=== PATIENT | female | born 1980 | race Caucasian/White ===

== ENCOUNTER 2018-04-02 23:47 | Emergency (ER) | payer BC ==
[2018-04-03 00:07] VITALS: RESP 16
[2018-04-03] MEDS ORDERED: PROPARACAINE 0.5% OPHTH DROPS 15 ML BTL BOTH EYES STA (01:53)
[2018-04-03] MEDS ORDERED: LEVOFLOXACIN 0.5% OPHTH DROPS 5 ML BTL RIGHT EYE STA (02:29)
[2018-04-03] MEDS ORDERED: DIPH,PERTUS(ACELL)TETVAC-LF 0.5 ML VIAL IM ONE (02:29)
--- NOTE | 2018-04-03 03:20 | ED ---
General Adult HPI - General Chief complaint: ENT Stated complaint: Eye swelling, headache Time Seen by Provider: 04/03/18 01:49 Source: patient, RN notes reviewed Mode of arrival: ambulatory Limitations: no limitations - History of Present Illness Initial comments: 38-year-old female presents to the emergency department for a chief complaint of right eye pain 12 hours. Patient states this pain started this morning. 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 Patient states when she woke up this morning she noticed the pain. Patient states it is irritated and feels like something is in her eye. She denies visual changes. Patient also states that the pain in the eyes causing her to have a migraine which she frequently gets. She states her left arm felt somewhat weak on the way to the emergency department which is a common symptom for her. Patient states that her headache and left arm weakness have completely resolved.Patient has no other complaints at this time including fevers or chills, shortness of breath, chest pain, abdominal pain, nausea or vomiting, or visual changes. - Related Data Home Medications Medication Instructions Recorded Confirmed buPROPion XL [Wellbutrin Xl] 150 mg PO AC-SUPPER 05/10/14 01/28/16 metFORMIN HCL [Glucophage] 500 mg PO DAILY 04/24/15 01/28/16 Acetaminophen [Tylenol] 500 - 1,000 mg PO Q4-6H PRN 01/26/16 01/28/16 Aspirin/Acetaminophen/Caffeine 1 tab PO DAILY 01/26/16 01/28/16 [Excedrin Migraine Caplet] Eletriptan [Relpax] 40 mg PO DAILY PRN 01/26/16 01/28/16 Topiramate [Topamax] 50 mg PO QAM 01/26/16 01/28/16 Topiramate [Topamax] 100 mg PO HS 01/26/16 01/28/16 Previous Rx's Medication Instructions Recorded Hydrocodone/Acetaminophen [[place] 1 - 2 tab PO Q6HR PRN #20 tab 01/28/16 5-325] Levofloxacin 0.5% Ophth Soln 2 drop BOTH EYES DIRECTED 7 04/03/18 [Quixin Ophth Soln] Days ml Allergies Allergy/AdvReac Type Severity Reaction Status Date / Time codeine AdvReac Severe Nausea & Verified 01/27/16 12:20 Vomiting Review of Systems ROS Statement: Those systems with pertinent positive or pertinent negative responses have been documented in the HPI. ROS Other: All systems not noted in ROS Statement are negative. Past Medical History Past Medical History: GERD/Reflux, Skin Disorder Additional Past Medical History / Comment(s): heavy and irregular pain periods with bloating,migraine,bump on skin around lt eye,Chiari Malformation,hx hemorrhoid, c section scar gets irritated at times History of Any Multi-Drug Resistant Organisms: None Reported Past Surgical History: Section, Hysterectomy, Orthopedic Surgery Additional Past Surgical History / Comment(s): abd. lap x7, carpal release, rt ovarian and f. tube removal. 01/27/2016 robotic hysterectomy Past Anesthesia/Blood Transfusion Reactions: No Reported Reaction Past Psychological History: Depression Smoking Status: Never smoker Past Alcohol Use History: None Reported Past Drug Use History: None Reported - Past Family History Mother Additional Family Medical History / Comment(s): hysterectomy, bladder susp x3 and prolapse rectum Father Family Medical History: Cancer Additional Family Medical History / Comment(s): prostate,skin General Exam Limitations: no limitations General appearance: alert, in no apparent distress Head exam: Present: atraumatic, normocephalic, normal inspection Eye exam: Present: normal appearance, PERRL, EOMI, conjunctival injection (Mild erythema noted of the right eye). Absent: scleral icterus, periorbital swelling , periorbital tenderness, other (No evidence of foreign body in the right eye. There is a small submillimeter circular abrasion noted at 6:00 in the right cornea. Negative Doris sign.) Expanded Eyelids: Normal Inspection: Bilateral Pupils: Regular, Round: Bilateral Sclera/Conjunctival: Injection: Right IOP (R) in mmH IOP (L) in mmH IOP measured with: Tonopen ENT exam: Present: normal exam, mucous membranes moist Neck exam: Present: normal inspection, full ROM. Absent: tenderness, meningismus, lymphadenopathy Respiratory exam: Present: normal lung sounds bilaterally. Absent: respiratory distress, wheezes, rales, rhonchi, stridor Cardiovascular Exam: Present: regular rate, normal rhythm, normal heart sounds. Absent: systolic murmur, diastolic murmur, rubs, gallop, clicks Neurological exam: Present: alert, oriented X3, CN II-XII intact Psychiatric exam: Present: normal affect, normal mood Course Vital Signs 04/03/18 00:02 Temperature 98.5 F Pulse Rate 68 Respiratory 16 Rate Blood Pressure 121/87 O2 Sat by Pulse 99 Oximetry Medical Decision Making - Medical Decision Making 38-year-old female presents to the emergency department for a chief lien of right eye pain 12 hours. Patient woke up with this pain. On exam with fluorescein stain patient does have a small submillimeter abrasion noted to the right cornea. Negative Doris sign. IOP 7 in the right eye. Patient denies visual changes. Patient symptoms resolved with proparacaine drops. Patient's pain is likely due to corneal abrasion. Patient will be treated with Levaquin flexes and drops as she does wear contacts. She was educated not to wear contacts until she sees ophthalmology. Patient will follow up with ophthalmology and return here if she has any worsening symptoms. Disposition Clinical Impression: Corneal abrasion Disposition: HOME SELF-CARE Condition: Good Instructions: Corneal Abrasion (ED) Additional Instructions: Please use eyedrops as directed. Do not wear contacts. Please follow-up with iron setter in one to 2 days. Return to the emergency department if you have any worsening symptoms. Prescriptions: Levofloxacin 0.5% Ophth Soln [Quixin Ophth Soln] 2 drop BOTH EYES DIRECTED 7 Days ml Is patient prescribed a controlled substance at d/c from ED?: No Referrals: Candy Estrada DO [Primary Care Provider] - 1-2 days Babak Clifton MD [STAFF PHYSICIAN] - 1-2 days Time of Disposition: 03:17
[2018-04-03 03:25] VITALS: BP 115/77; PULSE 77; TEMP 98.6
== END 2018-04-03 03:24 | disposition home or self-care (01) ==
LOC: EC 23:47
DX: S05.01XA Injury of conjunctiva and corneal abrasion without foreign body, right eye, initial encounter (principal); R51 Headache; F32.9 Major depressive disorder, single episode, unspecified; Z86.69 Personal history of other diseases of the nervous system and sense organs; Q07.00 Arnold-Chiari syndrome without spina bifida or hydrocephalus; Z23 Encounter for immunization; Z90.710 Acquired absence of both cervix and uterus; Z98.890 Other specified postprocedural states; Z79.82 Long term (current) use of aspirin; Z79.84 Long term (current) use of oral hypoglycemic drugs; Z79.899 Other long term (current) drug therapy; Z88.5 Allergy status to narcotic agent; X58.XXXA Exposure to other specified factors, initial encounter
CPT/HCPCS: 90471; 90715; 99283

== ENCOUNTER 2019-05-25 16:13 | Emergency (ER) | payer BC ==
[2019-05-25 16:28] VITALS: RESP 18; TEMP 98.3
[2019-05-25] MEDS ORDERED: SODIUM CHLORIDE 0.9% 1,000 ML IV STA (16:55)
[2019-05-25] MEDS ORDERED: diphenhydrAMINE 50 MG/ML 1 ML VIAL IVP STA (16:56)
[2019-05-25] MEDS ORDERED: METOCLOPRAMIDE 5 MG/ML 2 ML VIAL IVP STA (16:56)
[2019-05-25] MEDS ORDERED: ACETAMINOPHEN TAB 500 MG TAB PO STA (16:56)
[2019-05-25 17:48] VITALS: PULSE 74
[2019-05-25 18:01] LABS: Appearance,Urine Clear (Clear); Bilirubin,Urine Negative (Negative); Blood,Urine Negative (Negative); Color,Urine Light Yellow; Glucose,Urine (UA) Negative (Negative); Ketones,Urine Negative (Negative); Leukocyte Esterase,Urine Negative (Negative); Nitrite,Urine Negative (Negative); PH, Urine 7.5 (5.0-8.0); Protein,Urine Negative (Negative); Specific Gravity,Urine 1.016 (1.001-1.035); Urobilinogen,Urine <2.0 mg/dL (<2.0)
[2019-05-25 18:02] LABS: Basophils % (A) 0 %; Eosinophils # (A) 0.3 k/uL (0-0.7); Eosinophils % (A) 3 %; HCT 39.5 % (34.0-46.0); HGB 12.6 gm/dL (11.4-16.0); Lymphocytes # (A) 2.2 k/uL (1.0-4.8); Lymphocytes % (A) 25 %; MCH 27.5 pg (25.0-35.0); MCV 85.7 fL (80.0-100.0); Monocytes # (A) 0.4 k/uL (0-1.0); Monocytes % (A) 5 %; Neutrophils # (A) 5.5 k/uL (1.3-7.7); Neutrophils % (A) 65 %; Platelet Count 289 k/uL (150-450); RDW 13.1 % (11.5-15.5); WBC 8.5 k/uL (3.8-10.6)
[2019-05-25 18:15] LABS: ALT 11 U/L (4-34); AST 22 U/L (14-36); African American GFR (CKD) >90 (>60 ml/min/1.73 sqM); Albumin 3.7 g/dL (3.5-5.0); Alkaline Phosphatase 59 U/L (38-126); Anion Gap 6 mmol/L; Blood Urea Nitrogen 11 mg/dL (7-17); Calcium 8.4 mg/dL (8.4-10.2); Carbon Dioxide 25 mmol/L (22-30); Chloride 106 mmol/L (98-107); Glucose 81 mg/dL (74-99); Magnesium 1.9 mg/dL (1.6-2.3); Non-African American GFR(CKD) >90 (>60 ml/min/1.73 sqM); Potassium 4.2 mmol/L (3.5-5.1); Sodium 137 mmol/L (137-145); Total Bilirubin 0.2 mg/dL (0.2-1.3); Total Protein 6.6 g/dL (6.3-8.2)
[2019-05-25 18:17] LABS: D-Dimer 0.24 mg/L FEU (<0.60); INR 0.9 (<1.2); Prothrombin Time 9.6 sec (9.0-12.0)
--- NOTE | 2019-05-25 18:17 | ED ---
General Adult HPI - General Chief complaint: Headache Stated complaint: chest pain/migraine/left side numbness Time Seen by Provider: 05/25/19 16:44 Source: patient, RN notes reviewed, old records reviewed Mode of arrival: ambulatory Limitations: no limitations - History of Present Illness Initial comments: 39-year-old female presented for evaluation of headache. Left-sided headache. Patient has history of migraines, follows with neurology. She states this is her typical migraine. Associated with some nausea and photophobia. Left-sided frontal and parietal. She took her usual medication at home without significant relief. She also began to develop some palpitations and a vague chest discomfort approximately one hour after the gradual onset of her headache. No significant chest pain. No dyspnea. No fever. No abdominal pain. No focal numbness or weakness. - Related Data Home Medications Medication Instructions Recorded Confirmed buPROPion XL [Wellbutrin Xl] 150 mg PO AC-SUPPER 05/10/14 01/28/16 metFORMIN HCL [Glucophage] 500 mg PO DAILY 04/24/15 01/28/16 Acetaminophen [Tylenol] 500 - 1,000 mg PO Q4-6H PRN 01/26/16 01/28/16 Aspirin/Acetaminophen/Caffeine 1 tab PO DAILY 01/26/16 01/28/16 [Excedrin Migraine Caplet] Eletriptan [Relpax] 40 mg PO DAILY PRN 01/26/16 01/28/16 Topiramate [Topamax] 50 mg PO QAM 01/26/16 01/28/16 Topiramate [Topamax] 100 mg PO HS 01/26/16 01/28/16 Previous Rx's Medication Instructions Recorded Hydrocodone/Acetaminophen [[place] 1 - 2 tab PO Q6HR PRN #20 tab 01/28/16 5-325] Levofloxacin 0.5% Ophth Soln 2 drop BOTH EYES DIRECTED 7 04/03/18 [Quixin Ophth Soln] Days ml Allergies Allergy/AdvReac Type Severity Reaction Status Date / Time codeine AdvReac Severe Nausea & Verified 05/25/19 16:29 Vomiting Review of Systems ROS Statement: Those systems with pertinent positive or pertinent negative responses have been documented in the HPI. ROS Other: All systems not noted in ROS Statement are negative. Past Medical History Past Medical History: GERD/Reflux, Skin Disorder Additional Past Medical History / Comment(s): heavy and irregular pain periods with bloating,migraine,bump on skin around lt eye,Chiari Malformation,hx hem orrhoid, c section scar gets irritated at times History of Any Multi-Drug Resistant Organisms: None Reported Past Surgical History: Section, Hysterectomy, Orthopedic Surgery Additional Past Surgical History / Comment(s): abd. lap x7, carpal release, rt ovarian and f. tube removal. 01/27/2016 robotic hysterectomy Past Anesthesia/Blood Transfusion Reactions: No Reported Reaction Past Psychological History: Depression Smoking Status: Never smoker Past Alcohol Use History: None Reported Past Drug Use History: None Reported - Past Family History Mother Additional Family Medical History / Comment(s): hysterectomy, bladder susp x3 and prolapse rectum Father Family Medical History: Cancer Additional Family Medical History / Comment(s): prostate,skin General Exam Limitations: no limitations General appearance: alert, in no apparent distress Head exam: Present: atraumatic, normocephalic Eye exam: Present: normal appearance, PERRL, EOMI. Absent: scleral icterus, periorbital swelling ENT exam: Present: normal exam Neck exam: Present: normal inspection. Absent: tenderness, meningismus Respiratory exam: Present: normal lung sounds bilaterally. Absent: respiratory distress, wheezes, rales Cardiovascular Exam: Present: regular rate, normal rhythm, normal heart sounds GI/Abdominal exam: Present: soft. Absent: distended, tenderness, guarding Extremities exam: Present: normal inspection, normal capillary refill. Absent: pedal edema, calf tenderness Back exam: Present: normal inspection Neurological exam: Present: alert, oriented X3, CN II-XII intact, normal gait, other (No ataxia, no focal findings.). Absent: motor sensory deficit Psychiatric exam: Present: normal affect, normal mood Skin exam: Present: warm, dry, intact. Absent: cyanosis, diaphoretic Course Vital Signs 05/25/19 05/25/19 16:24 17:45 Temperature 98.3 F Pulse Rate 81 74 Respiratory 18 18 Rate Blood Pressure 119/85 124/80 O2 Sat by Pulse 98 100 Oximetry EKG Findings - EKG Comments: EKG Findings:: EKG: Normal sinus rhythm, rate of 92, RI interval 144, QRS duration 82, QTC 447, no ST segment elevation Medical Decision Making - Medical Decision Making 39-year-old female presenting with typical migraine headache. Patient is currently under the care of a neurologist and follows for chronic migraine headaches. Denies sudden onset or worst headache of her life. Headache is typical of her migraine symptoms. She developed some palpitations and vague chest discomfort. No sharp chest pain. No radiating chest pain. She has no history of CAD or DVT PE. Workup in the emergency department reveals a EKG which is sinus rhythm with no ST segment elevation or definitive signs of ischemia. She has a chest x-ray which is negative for acute cardiopulmonary disease. CBC, CMP are unremarkable. D-dimer is negative, troponin is negative. I did reevaluate the patient she is resting comfortably, stating her headache is completely resolved. No further symptoms in her chest. She is eager for discharge and can follow up with her primary care physician and neurologist. - Lab Data Result diagrams: 05/25/19 17:45 05/25/19 17:45 Lab Results 05/25/19 05/25/19 05/25/19 Range/Units 17:38 17:45 17:45 WBC 8.5 (3.8-10.6) k/uL RBC 4.60 (3.80-5.40) m/uL Hgb 12.6 (11.4-16.0) gm/dL Hct 39.5 (34.0-46.0) % MCV 85.7 (80.0-100.0) fL MCH 27.5 (25.0-35.0) pg MCHC 32.0 (31.0-37.0) g/dL RDW 13.1 (11.5-15.5) % Plt Count 289 (150-450) k/uL Neutrophils % 65 % Lymphocytes % 25 % Monocytes % 5 % Eosinophils % 3 % Basophils % 0 % Neutrophils # 5.5 (1.3-7.7) k/uL Lymphocytes # 2.2 (1.0-4.8) k/uL Monocytes # 0.4 (0-1.0) k/uL Eosinophils # 0.3 (0-0.7) k/uL Basophils # 0.0 (0-0.2) k/uL PT 9.6 (9.0-12.0) sec INR 0.9 (<1.2) APTT 24.1 (22.0-30.0) sec D-Dimer 0.24 (<0.60) mg/L FEU Sodium (137-145) mmol/L Potassium (3.5-5.1) mmol/L Chloride (98-107) mmol/L Carbon Dioxide (22-30) mmol/L Anion Gap mmol/L BUN (7-17) mg/dL Creatinine (0.52-1.04) mg/dL Est GFR (CKD-EPI)AfAm (>60 ml/min/1.73 sqM) Est GFR (CKD-EPI)NonAf (>60 ml/min/1.73 sqM) Glucose (74-99) mg/dL Calcium (8.4-10.2) mg/dL Magnesium (1.6-2.3) mg/dL Total Bilirubin (0.2-1.3) mg/dL AST (14-36) U/L ALT (4-34) U/L Alkaline Phosphatase (38-126) U/L Troponin I (0.000-0.034) ng/mL Total Protein (6.3-8.2) g/dL Albumin (3.5-5.0) g/dL Urine Color Light Yellow Urine Appearance Clear (Clear) Urine pH 7.5 (5.0-8.0) Ur Specific [place] 1.016 (1.001-1.035) Urine Protein Negative (Negative) Urine Glucose (UA) Negative (Negative) Urine Ketones Negative (Negative) Urine Blood Negative (Negative) Urine Nitrite Negative (Negative) Urine Bilirubin Negative (Negative) Urine Urobilinogen <2.0 (<2.0) mg/dL Ur Leukocyte Esterase Negative (Negative) 05/25/19 05/25/19 Range/Units 17:45 17:45 WBC (3.8-10.6) k/uL RBC (3.80-5.40) m/uL Hgb (11.4-16.0) gm/dL Hct (34.0-46.0) % MCV (80.0-100.0) fL MCH (25.0-35.0) pg MCHC (31.0-37.0) g/dL RDW (11.5-15.5) % Plt Count (150-450) k/uL Neutrophils % % Lymphocytes % % Monocytes % % Eosinophils % % Basophils % % Neutrophils # (1.3-7.7) k/uL Lymphocytes # (1.0-4.8) k/uL Monocytes # (0-1.0) k/uL Eosinophils # (0-0.7) k/uL Basophils # (0-0.2) k/uL PT (9.0-12.0) sec INR (<1.2) APTT (22.0-30.0) sec D-Dimer (<0.60) mg/L FEU Sodium 137 (137-145) mmol/L Potassium 4.2 (3.5-5.1) mmol/L Chloride 106 (98-107) mmol/L Carbon Dioxide 25 (22-30) mmol/L Anion Gap 6 mmol/L BUN 11 (7-17) mg/dL Creatinine 0.62 (0.52-1.04) mg/dL Est GFR (CKD-EPI)AfAm >90 (>60 ml/min/1.73 sqM) Est GFR (CKD-EPI)NonAf >90 (>60 ml/min/1.73 sqM) Glucose 81 (74-99) mg/dL Calcium 8.4 (8.4-10.2) mg/dL Magnesium 1.9 (1.6-2.3) mg/dL Total Bilirubin 0.2 (0.2-1.3) mg/dL AST 22 (14-36) U/L ALT 11 (4-34) U/L Alkaline Phosphatase 59 (38-126) U/L Troponin I <0.012 (0.000-0.034) ng/mL Total Protein 6.6 (6.3-8.2) g/dL Albumin 3.7 (3.5-5.0) g/dL Urine Color Urine Appearance (Clear) Urine pH (5.0-8.0) Ur Specific [place] (1.001-1.035) Urine Protein (Negative) Urine Glucose (UA) (Negative) Urine Ketones (Negative) Urine Blood (Negative) Urine Nitrite (Negative) Urine Bilirubin (Negative) Urine Urobilinogen (<2.0) mg/dL Ur Leukocyte Esterase (Negative) Disposition Clinical Impression: Headache Disposition: HOME SELF-CARE Condition: Good Instructions (If sedation given, give patient instructions): Acute Headache (ED) Additional Instructions: Please return with worsening or changing symptoms. Please follow up with her primary care physician and her neurologist. Is patient prescribed a controlled substance at d/c from ED?: No Referrals: Candy Estrada DO [Primary Care Provider] - 1-2 days Time of Disposition: 18:36
[2019-05-25 18:18] LABS: Partial Thromboplastin Time 24.1 sec (22.0-30.0)
--- NOTE | 2019-05-25 18:25 | XR ---
EXAMINATION TYPE: XR chest 2V DATE OF EXAM: 05/25/2019 COMPARISON: NONE HISTORY: Chest pain TECHNIQUE: 2 views FINDINGS: Heart and mediastinum are normal. Lungs are clear. Diaphragm is normal. Bony thorax appears normal. IMPRESSION: Normal chest.
[2019-05-25 18:46] VITALS: BP 123/87
== END 2019-05-25 18:49 | disposition home or self-care (01) ==
LOC: EC 16:13
DX: G43.909 Migraine, unspecified, not intractable, without status migrainosus (principal); R00.2 Palpitations; R07.89 Other chest pain; F32.9 Major depressive disorder, single episode, unspecified; Z88.5 Allergy status to narcotic agent; Z79.82 Long term (current) use of aspirin; Z79.84 Long term (current) use of oral hypoglycemic drugs; Z79.899 Other long term (current) drug therapy; Z86.69 Personal history of other diseases of the nervous system and sense organs
CPT/HCPCS: 99284; 96374; 96375; 96361; 36415; 93005; 85379; 80053; 83735; 84484; 85025; 85610; 85730; 81003; 71046; J1200; J2765